=== PATIENT | male | born 1985 | race Caucasian/White ===

== ENCOUNTER 2017-09-27 13:22 | Observation (INO) | payer OTHER, SELFPAY ==
[2017-09-27 13:22] VITALS: BP 122/84; PULSE 85; RESP 16; TEMP 36.9; O2SAT 97; BMI 30.9
[2017-09-27 15:19] LABS: Absolute Lymphocyte Count 1.99 X10^3/ul (0.83-4.51); Absolute Neutrophil Count 5.9 X10^3/uL (2.0-7.7); Basophil# 0.02 X10^3/uL; Basophil% 0.2 % (0-1); Eosinophil# 0.06 X10^3/uL; Eosinophils% 0.7 % (0-5); Hemoglobin 15.3 g/dl (13.0-16.5); Lymphocyte # 1.99 X10^3/ul (4.0); Lymphocyte % 23.9 % (19-41); Mean Corpuscular Hgb 27.8 pg (27.0-32.0); Mean Corpuscular Volume 81.8 fL (80-94); Mean Platelet Vol. 9.5 fl (6.2-12.0); Monocyte# 0.36 X10^3/uL; Monocyte% 4.3 % (0-10); Neutrophil # 5.87 X10^3/uL (2.7-7.7); Neutrophil % 70.8 % (47-70); Platelet Count 295 K/mm3 (150-450); RBC Distribution Width CV 12.4 % (11.6-14.6); RBC Distribution Width SD 37.1 fl (35.1-43.9); White Blood Count 8.3 K/mm3 (4.4-11.0)
[2017-09-27 15:21] LABS: POSITIVE COUNT NO; POSITIVE DIFFERENTIAL NO; POSITIVE MORPHOLOGY NO
--- NOTE | 2017-09-27 15:26 | CT_ITS ---
STUDY: CT ABDOMEN AND PELVIS WITH CONTRAST REASON FOR EXAM: Male, 31 years old. Right-sided abdominal pain RADIATION DOSAGE (If Supplied By Facility): CTDIvol = ( 16.08 ) mGy, DLP = ( 1241.84 ) mGycm TECHNIQUE: Transaxial images were obtained from the dome of the diaphragm to the symphysis pubis without oral contrast. 100CC ml of Isovue 300 contrast was administered. Sagittal and coronal images were reconstructed. Individualized dose optimization techniques were used for this CT. COMPARISON: None. FINDINGS: There is minor atelectasis within the dependent portion of the lungs. The visualized portions of the heart are within normal limits. Normal liver. Normal gallbladder and extrahepatic biliary system. Normal spleen. Normal pancreas. Normal bilateral adrenal glands. Normal right kidney. Normal left kidney. Normal visualized stomach. Normal small intestine. Normal colon. The appendix is dilated and fluid-filled measuring approximately 11 mm in diameter without appreciable stranding in the fat at this time however possibility of early appendicitis is not excluded. Normal abdominal aorta. Normal inferior vena cava. Normal retroperitoneum. Nonspecific distention of the bladder. Normal abdominal wall. Normal osseous structures. CT/Abdomen/Pelvis WITH Contrast IMPRESSION: Dilated fluid-filled appendix without appreciable stranding in the fat which may be early changes of acute appendicitis. Clinical correlation recommended N.B. : The above information has been verbally conveyed by Ruddy Marshall MD to Dr. Carrington Clifford, Referring Physician, on 09/27/2017 18:16:01 (ET). Electronically Signed: Ruddy Marshall MD at 17:53 EDT , Service support , N.B. : The above information has been verbally conveyed by Ruddy Marshall MD to Dr. Carrington Clifford, Referring Physician, on 09/27/2017 18:16:01 (ET).
[2017-09-27 15:32] LABS: Anion Gap 6 (5-15); BUN 8 mg/dL (7-18); BUN/Creat Ratio 8.8 RATIO (10-20); Chloride 103 mmol/L (98-107); Creatinine, Serum 0.91 mg/dL (0.70-1.30); EST Glomerular Filtration Rate 102 mL/min (>60); Est Glom Filt Rate - Afr Amer 124 mL/min (>60); Estimated Creatinine Clearance 121.44 ml/min; Glucose 104 mg/dL (74-106); Potassium 3.8 mmol/L (3.5-5.1); Sodium Level 138 mmol/L (136-145)
[2017-09-27 15:54] LABS: AST(SGOT) 18 U/L (15-37); Alanine Aminotransfer ALT/SGPT 43 U/L (16-61); Alkaline Phosphatase 76 U/L (45-117); Bilirubin, Direct 0.16 mg/dL (0.00-0.30); Globulin 3.5 g/dL (2.2-4.2); Lipase 126 U/L (73-393); Protein, Total 7.5 g/dL (6.4-8.2)
[2017-09-27] MEDS: Morphine 4 MG/ML Syringe IV ×2 (16:00→22:30)
[2017-09-27] MEDS: Ondansetron 4 MG/2 ML Vial IV (16:00)
[2017-09-27] MEDS: 0.9% Normal Saline 1,000 ML 1000 ML IV (16:00)
[2017-09-27 16:20] LABS: Bacteria 0 SEEN /hpf (None Seen); Mucous, Urine 0 SEEN /hpf (<or=2+); Red Blood Cells-Urine 0 SEEN /hpf (0-5); Squamous Epithelial Cells - UA 0 SEEN /hpf (0-5); White Blood Cells 0 SEEN /hpf (0-5)
--- NOTE | 2017-09-27 16:30 | ED.VISSUMM ---
- ER Visit Summary Date of Service: 09/27/17 Chief Complaint: Abdominal pain History of Present Illness: The patient is a 31 M who is visiting from [place] and will be here for 2 more days. He reports that he has right-sided abdominal pain began 5:00 this morning. Is gradually gotten worse. Some aching constant pain with occasional sharp pains. States is 9 at 10 worst and 7 out of 10 currently. Is worsened by movement and driving. She relieved by nothing. He denies any associated nausea, vomiting, or diarrhea. Reports his last bowel movements today and it was loose. No blood in his stools or black tarry stools. No dysuria or frequency. No flank pain. Does complain of subjective fever and chills. Patient reports he had a similar episode approximately 1 month ago that resolved after approximately 2 weeks. He denies any fatty food intolerance. Physical Examination: Vitals: Stable. Afebrile. General: Well-nourished and well-developed. Head: Normocephalic atraumatic. Neck: Supple, no lymphadenopathy. No JVD. Nontender. Cardiovascular: Regular rate and rhythm. No murmurs. Respiratory: No respiratory distress. Clear to auscultation bilaterally. Abdominal: Soft, moderate right upper quadrant and right lower quadrant tenderness to palpation, nondistended, normal bowel sounds. No guarding, rebound, or peritoneal signs. Back: Nontender. Extremities: Nontender, no edema. Skin: Normal color, no rash. Neurologic: Alert and oriented ?3. Cranial nerves II through XII are intact. Normal strength and sensation. Psych: Normal affect. Test Results: CBC is marked for 7 neutrophils 71. Chem-7 is normal. LFTs are normal. Lipase is normal. CT abdomen and pelvis with p.o. and IV contrast shows a dilated, fluid-filled appendix without appreciable fat stranding. Question early appendicitis. The appendix is 11 mm. Emergency Department Course and Treatment: Patient had an IV placed. He is given morphine and Zofran IV and is resting comfortably. Treatment Plan: Patient was discussed with Dr. Baugh and she will see him in the emergency department. Disposition: Admitted in stable condition. Impression: 1. Appendicitis. This note was generated with [employer] dictation software. It may contain incorrect words, spelling, and punctuation that were not noted in review of the chart prior to signing ED Disposition - Plan for ED Patient: Chief Complaint: Abd Pain Referrals: [facility] Doctor,Out of [Primary Care Provider] -
[2017-09-27 16:55] LABS: Color, Urine Yellow (Yellow); Glucose, Dipstick Normal (Normal); Ketone-Dipstick Negative (Negative); Leukocyte Esterase-Dipstick Negative /ul (Negative); Nitrite-Dipstick Negative (Negative); Occult Blood-Urine Negative /ul (Negative); Protein-Dipstick Negative (Negative); Urine Bilirubin Dipstick Negative (Negative); Urine Clarity Sl. Cloudy (Clear); Urine Urobilinogen Normal (Normal)
--- NOTE | 2017-09-27 19:00 | APP_PTH ---
PATIENT: VALDO LAUREANO LOC: MS3 U#:[id number] AGE/SX: 31/M ROOM: OH306 RE09/27/[address]: Dr. Precious Baugh MD : 1985 BED: 1 DIS: 09/28/2017 SPEC #: [id number] RECD: 09/28/17 06:57 STATUS: DAVID RECollin #: [id number] PEDRO: 09/27/17 19:[address]: Precious Baugh DEPT: SURGICAL PATHOLOGY RECD BY: Westley Saxena ENTERED: 09/28/17 11:38 SP TYPE: APPENDIX OTHR DR: Out of Town Doctor Tissues: Appendix, NOS Procedures: Surgery Specimen Level III HEADER OPERATION: Laparoscopic appendectomy PRE-OP DIAGNOSIS: Abnormal CT scan TISSUE SUBMITTED: Appendix MICROSCOPIC DIAGNOSIS Appendix: Mild acute appendicitis. Focal area of diverticulosis. A periappendiceal benign lymph node with reactive changes. SJ:filiberto 10/01/17 MICROSCOPIC DESCRIPTION Slides are reviewed. GROSS DESCRIPTION Received is one container labeled with the patient's name and designated appendix. The specimen consists of a vermiform appendix measuring 8.5 cm in length and 1.2 cm in average diameter. Sections reveal a patent lumen with mid portion containing a possible diverticulum measuring 0.6 cm in greatest dimension. No mass lesions are identified. Street Car Inspector sections are submitted in one cassette. / AM:filiberto 09/28/17 TC:2 CPT: 41605
--- NOTE | 2017-09-27 19:06 | HP.PCM_ITS ---
History and Physical Date of Admission: 09/27/17 Chief Complaint: right sided abdominal pain History of Present Illness: 31 y/o WM presents with right sided abdominal pain since 5 am this morning. States that he had similar episode about 3 weeks ago, was seen by a physician in [place] (his home) and workup was negative. Pain resolved after 10 days. Patient states that this present pain is the same. CT scan was obtained which revealed dilated appendix and fluid filled to 11mm without surrounding inflammatory changes noted. WBC 8.3K with left shift of differential Denies nausea/emesis Does have subjective temperature elevation and chills. Past Medical History: denies major medical illnesses Past Surgical History: denies previous surgery Medications: denies taking chronic medications Allergies: penicillins Social history: TOB use denies Review of Systems: General - denies fevers, denies weight loss, denies anorexia Cardiovascular denies chest pain, denies history of heart attack Pulmonary denies shortness of breath, denies coughing up blood Gastrointestinal as per HPI, denies blood in stools Neurological denies numbness/weakness of extremities, denies seizures Genitourinary denies burning with urination, denies blood in urine Hematological denies spontaneous/prolonged bleeding Skin denies open non healing wounds Musculoskeletal denies arthritis Endocrine denies diabetes Psychological denies hallucinations Physical examination: Vital signs Temp 98.4F RR 16 BP 122/84 General WD/WN WM in no apparent distress, alert and oriented, not septic appearing HEENT Normocephalic. EOM intact with sclera clear and no icterus noted. Neck is supple with no jugular venous distention noted. Trachea is midline. Lungs clear to auscultation. normal breath sounds. No rales/rhonchi/ wheezing noted. No labored breathing noted, such as retractions. No cough heard. Heart normal S1 and S2 auscultated. No rubs/clicks/murmurs noted. Normal size and location by auscultation. Abdomen soft but tender in the right side of the abdomen with rebound tenderness noted, hypoactive bowel sounds Extremities no calf tenderness noted. No pitting edema noted. Genitourinary/Rectal deferred Skin normal skin integrity. Neurological non focal Psychological normal affect, patient is calm and appropriate Impression: right sided abdominal pain, possible appendicitis abnormal appendix by CT scan Discussion/Plan: I have discussed the above with the patient. The patient may have signs of appendicitis. I have offered the patient the procedure of laparoscopic appendectomy. I have explained the procedure to the patient. have counseled the patient as to the risks of the procedure, including but not limited to: infection, bleeding, injury to any blood vessels/nerves, scar tissue, injury to any intrabdominal organs, injury to kidney/ureters, injury to bowel/bladder, intraabdominal abscess/bleeding, hernias at incisional sites, wound infections, possible open procedure, complications of anesthesia, postoperative pneumonia/cardiac problems/blood clots etc. the patient understands. I have answered all questions to the patient?s satisfaction and the patient has no further questions.
[2017-09-27] MEDS: Bupiv/Epi 0.5% Mpf 30 ML Vial (20:43)
--- NOTE | 2017-09-27 20:51 | OP.PN_ITS ---
Immediate Post-Op Note Date of Procedure: 09/27/17 Primary Surgeon/Physician: Precious Baugh quality assurance group leader: NOT,DEFINED Pre-Operative Diagnosis: abnormal appendix by CT scan Post-Operative Diagnosis: abnormal appendix Surgery/Procedure Performed:: laparoscopic appendectomy Description of Surgical Findings:: abnormal appearing appendix, dilated Estimated Blood Loss: < 10 ml Specimen's removed: appendix Type of Anesthesia:: General ASA Class: ASA2 Plus Emergency - Admit VTE Documentation VTE Present on Admission: Yes VTE Mechan Device Prophylaxis: SCD's
--- NOTE | 2017-09-27 20:54 | OP.PCM_ITS ---
Report of Operation Date of Procedure: 09/27/17 Pre-Operative Diagnosis: abnormal appendix by CT scan Post-Operative Diagnosis: abnormal appendix Surgery/Procedure Performed:: laparoscopic appendectomy Description of Surgical Findings:: abnormal appearing appendix, dilated marketing research coordinator: NOT,DEFINED Type of Anesthesia:: General Anesthesiologist: John Epstein Specimen's removed: appendix Estimated Blood Loss (mL): < 10 ml Fluids Replaced: 1000 ml RL Description of Procedure: After informed consent was obtained, the patient was brought into the operating room and placed in the supine position on the operating table. Appropriate time out protocol was followed. The patient was then placed under general anesthesia. The patient?s abdomen was then prepped with a sterile surgical skin preparation and sterile surgical drapes were placed. The infraumbilical skin fold was grasped with penetrating clamps and the skin and subcutaneous tissues were infiltrated with local anesthesia. A skin incision was then made with a 15 blade scalpel. A Veress needle was then inserted into the intraabdominal cavity and checked to be in the proper position with a normal saline drop test. A CO2 pneumoperitoneum was then created. Once this was achieved, the Veress needle was removed and a 5 mm trocar was placed in its stead. A 5 mm laparoscope was then inserted into the trocar. Careful examination of the intraabdominal contents was then done. There was no evidence of injury to any internal organs from placement of the Veress needle or the trocar. Under direct visualization, a 12mm suprapubic trocar and a 5mm left lower quadrant trocar was then placed into the intraabdominal cavity. The skin and subcutaneous tissues at these sites were first infiltrated with local anesthetic. Attention was then directed to the right lower quadrant. The appendix was visualized. The mesentery of the appendix was taken down by cauterizing the tissue from the free edge to the base of the appendix with the Harmonic scalpel. Once the base of the appendix was freed of surrounding tissues, then the linear gastrointestinal stapling device was brought into the abdominal cavity via the 12mm port and placed across the base of the appendix. The stapling device was fired, thus stapling across the base of the appendix and transecting it simultaneously. There still was a small portion of attachment. A vicryl endoloop was then placed around this and the appendix was completely transected free. The appendix was then placed in an Endobag and this was brought out through the suprapubic trocar. The appendix was then forwarded to Pathology for analysis. The appendiceal stump was carefully examined. There was no evidence of any active bleeding or fecal leakage. The surrounding tissues were also examined and there was no evidence of any active bleeding or fecal/bile leakage. The intraabdominal cavity was examined and there was no evidence of further inflammation or tissue abnormality. There was no evidence of any peritoneal fluid. The CO2 pneumoperitoneum was released and all trocars were removed intact. The suprapubic fascia was reapproximated with a figure-of-8 vicryl suture. All skin incisions were reapproximated with monocryl suture. Cavilon and steristrips were applied to reinforce skin closure and proper sterile dressings were placed. The patient was then extubated and brought to the Recovery Room in stable condition. - Complications none noted - Admit VTE Documentation VTE Present on Admission: Yes VTE Mechan Device Prophylaxis: SCD's
[2017-09-27 21:05] VITALS: BP 122/84; BP 143/84; PULSE 88; RESP 14; TEMP 36.6; O2SAT 100
[2017-09-27 21:15] VITALS: BP 122/84; BP 133/96; PULSE 79; RESP 16; O2SAT 97
[2017-09-27 21:31] VITALS: BP 122/84; BP 124/85; PULSE 76; RESP 16; TEMP 36.6; O2SAT 99
[2017-09-27 21:53] VITALS: BMI 30.8
[2017-09-27 21:54] VITALS: BP 120/86; PULSE 75; RESP 14; TEMP 37.1; O2SAT 94
[2017-09-27 22:05] VITALS: BMI 30.8
[2017-09-27] MEDS: proMETHazine 25 MG/ML Syringe 12.5 MG IV (22:31)
[2017-09-27 23:54] VITALS: BP 115/80; PULSE 78; RESP 16; TEMP 37.1; O2SAT 94
[2017-09-28 01:59] VITALS: BP 118/82; PULSE 87; RESP 14; TEMP 36.9; O2SAT 93
[2017-09-28 04:30] VITALS: BP 93/60; PULSE 80; RESP 16; TEMP 36.7; O2SAT 93
--- NOTE | 2017-09-28 04:30 | NURSING ---
Pt assisted to bathroom to void. Upon returning to bed, pt c/o feeling dizzy. Pt assist to lay down in bed, supine position. Pt c/o feeling faint. BP 93/60. 2L O2 NC applied, pt encouraged to drink water. Few minutes later, pt reports feeling better, BP 112/78. Pt encouraged to call for assistance if he needs to ambulate. Denies pain or nausea. Call light in reach.
[2017-09-28 04:37] VITALS: BP 112/78; PULSE 79
--- NOTE | 2017-09-28 07:32 | PCM.DC.APPY ---
Discharge Diet: No Restrictions - avoid drinking carbonated beverages for a few days drink plenty of fluids especially water Discharge Activity: Return to Normal Activity, May not drive while taking narcotic pain medications. Lifting Restrictions: no lifting greater than 20 pounds for 2 weeks Call your doctor if your incision/area has: Continuous Slow Oozing, Foul Smelling Discharge Call your doctor if you observe: Fever of 101 or Higher Additional Dressing/Incision Instructions:: Leave dressings in place. May get wet in shower. Do not soak - no tub baths/swimming Medications to take at Discharge Hydrocodone Bitart/Apap 5-325 [[place] 5MG-325MG] 1 tab PO Q6H PRN PRN 5 Days #10 tab 09/28/17 Allergies/Adverse Reactions: Allergies Penicillins [PCN] Allergy (Verified 09/27/17 13:24) Hives The following prescriptions were given: Hydrocodone Bitart/Apap 5-325 [[place] 5MG-325MG] 1 tab PO Q6H PRN PRN 5 Days #10 tab PRN Reason: Pain Primary Care Physician: Jazzy Doctor,Out of [Primary Care Provider] - Please follow up with your Primary Care Physician in: within 7-10 days when you arrive home Test Results: Test results from this visit will be discussed in further detail at your follow-up appointment, if applicable.
--- NOTE | 2017-09-28 07:36 | DCINST_ITS ---
Discharge Diet: No Restrictions - avoid drinking carbonated beverages for a few days drink plenty of fluids especially water Discharge Activity: Return to Normal Activity, May not drive while taking narcotic pain medications. Lifting Restrictions: no lifting greater than 20 pounds for 2 weeks Call your doctor if your incision/area has: Continuous Slow Oozing, Foul Smelling Discharge Call your doctor if you observe: Fever of 101 or Higher Additional Dressing/Incision Instructions:: Leave dressings in place. May get wet in shower. Do not soak - no tub baths/swimming Medications to take at Discharge Hydrocodone Bitart/Apap 5-325 [[place] 5MG-325MG] 1 tab PO Q6H PRN PRN 5 Days #10 tab 09/28/17 Allergies/Adverse Reactions: Allergies Penicillins [PCN] Allergy (Verified 09/27/17 13:24) Hives The following prescriptions were given: Hydrocodone Bitart/Apap 5-325 [[place] 5MG-325MG] 1 tab PO Q6H PRN PRN 5 Days #10 tab PRN Reason: Pain Primary Care Physician: Jazzy Doctor,Out of [Primary Care Provider] - Please follow up with your Primary Care Physician in: within 7-10 days when you arrive home Test Results: Test results from this visit will be discussed in further detail at your follow- up appointment, if applicable.
--- NOTE | 2017-09-28 07:48 | PCM.PN.SRG ---
Subjective: complaint of soreness at incision sites, pain that he initially presented with is gone - Physical Exam Vital Signs Temp Pulse Resp BP Pulse Ox 98.1 F 79 16 112/78 93 09/28/17 04:30 09/28/17 04:37 09/28/17 04:30 09/28/17 04:37 09/28/17 04:30 Oxygen Flow Rate (L/min) 2 Oxygen Delivery Method Room Air Weight: 97.522 kg Body Mass Index (BMI) 30.8 Intake and Output for Last 24 Hours 09/26/17 09/27/17 09/28/17 23:59 23:59 23:59 Intake Total 1000 / 1000 1316 / 1316 Output Total 475 / 475 Balance 1000 / 1000 841 / 841 Medical Necessity - Tobacco Use Smoking Status: Never smoker Assessment/Plan POD#1 s/p laparoscopic appendectomy Plan: d/c to home he will follow up with his local physician since he is from out [facility]
[2017-09-28 10:25] VITALS: BP 117/71; PULSE 88; RESP 16; TEMP 37.4; O2SAT 95
--- NOTE | 2017-09-28 10:53 | NURSING ---
1025-NURSING SHIFT ASSESSMENT COMPLETED. LUNGS CLEAR, ROOM AIR W/NO SOB NOTED. ABDOMEN SOFT/ROUNDED & TENDER W/3 LAP DRSGS D&I. STATES PASSING FLATUS. VOIDING W/O DIFFICULTY. DENIES NAUSEA AFTER REGULAR DIET THIS AM. AMBULATED IN HALLWAY W/O DIZZINESS OR LIGHTHEADEDNESS. GIRLFRIEND AT BEDSIDE. D/C INSTRUCTIONS GIVEN.
== END 2017-09-28 10:43 | disposition home or self-care (01) ==
LOC: ED 16:16 → SDC 19:48 → AC 19:48 → SDC 19:51 → MS3 10-01 08:31
PROVIDERS: Admitting Provider Surgery; Emergency Provider Emergency Medicine; Visit Provider Surgery
PROC: 0DTJ4ZZ Resection of Appendix, Percutaneous Endoscopic Approach (ICD-10-PCS; CPT 44970; principal; 2017-09-27 19:00)
DX: K35.80 Unspecified acute appendicitis (principal)
CPT/HCPCS: 00840; 44970; 74177; 80048; 80076; 81001; 83690; 85025; 88304; 96374; 96375; 96376; 99218; 99282; J7030; J7120; Q9967; A4216; G0378; J2405